=== PATIENT | female | born 1990 | race Two or more races ===

== ENCOUNTER 2021-12-04 08:34 | Outpatient (CLI) | payer BC ==
[2021-12-04 18:25] LABS: SARS-CoV-2 PCR by NAA Not Detected (NotDetected)
== END 2021-12-04 08:35 | disposition home or self-care (01) ==
LOC: CSHLAB 08:34
PROVIDERS: ATTEND Student in an Organized Health Care Education/Training Program
DX: Z20.822 Contact with and (suspected) exposure to COVID-19 (principal)
CPT/HCPCS: U0003; U0005

== ENCOUNTER 2021-12-09 19:00 | Inpatient (IN) | payer BC ==
[~2021-12-09 19:00] MED LIST: Bupivacaine 0.25% HCL 30 ML VIAL ONE
[2021-12-09] MEDS ORDERED: HYDROcodone/Acetaminophen 5/325 mg Tablet PO PRN (20:39)
[2021-12-09] MEDS ORDERED: Misoprostol 200 MCG TAB PR PRN (20:39)
[2021-12-09] MEDS ORDERED: Ibuprofen 800 MG TAB PO PRN (20:39)
[2021-12-09] MEDS ORDERED: Carboprost 250 MCG/ML AMP IM PRN (20:39)
[2021-12-09] MEDS ORDERED: Ondansetron PF 4 MG/2 ML Vial IVP PRN (20:39)
[2021-12-09] MEDS ORDERED: Lidocaine 1% (PF) 30 ML VIAL SC PRN (20:39)
[2021-12-09] MEDS ORDERED: hydrALAZINE 20 MG/ML VIAL SLOW IVP PRN (20:39)
[2021-12-09] MEDS ORDERED: Diphenoxylate HCl/Atropine Tablet PO PRN (20:39)
[2021-12-09] MEDS ORDERED: Methylergonovine 0.2 MG/ML VIAL IM PRN (20:39)
[2021-12-09] MEDS ORDERED: Promethazine HCl 25 MG/ML VIAL IM PRN (20:39)
[2021-12-09] MEDS ORDERED: Acetaminophen 500 MG TAB PO PRN (20:39)
[2021-12-09] MEDS ORDERED: Butorphanol Tartrate 1 MG/ML VIAL SLOW IVP PRN (20:39)
[2021-12-09] MEDS ORDERED: NS w/ Oxytocin 30 units 500 ML IV SCH ×2 (20:45)
[2021-12-09 20:53] VITALS: BMI 23.6
[2021-12-09] MEDS: Misoprostol 100 MCG TAB VAG SCH (21:22)
[2021-12-09 21:26] LABS: Hemoglobin 12.1 g/dL (12.0-15.5); Mean Corpuscular Hemoglobin 29.5 pg (27.0-33.0); Mean Corpuscular Volume 84.4 fl (81.6-98.3); Mean Platelet Volume 11.9 fl (7.4-10.4); Platelet Count 257 10x3/uL (150-450); RBC Distribution Width 14.6 % (11.5-14.5); White Blood Cell (WBC) Count 9.2 10x3/uL (3.5-10.5)
[2021-12-09 21:34] LABS: Glucose 110 mg/dL (70-105)
[2021-12-09 22:00] LABS: Syphilis Antibody Nonreactive (Nonreactive); Syphilis Antibody Index 0.07 S/CO (<1.00 Non-Reactive)
[2021-12-09 22:01] LABS: Hep B Surf Ag Non-Reactive S/CO (NonReactive)
[2021-12-09 22:05] LABS: HBSAg Index 0.18 S/CO (0-0.99)
[2021-12-10] MEDS: Lactated Ringer's 1,000 ML IV SCH (08:08)
[2021-12-10] MEDS: Misoprostol 100 MCG TAB VAG SCH (08:15)
[2021-12-10] MEDS ORDERED: Fentanyl 2 mcg/Bup 0.1% Cadd 100 ML ONE (13:56)
[2021-12-10] MEDS ORDERED: Naloxone HCl 0.4 mg/ml Vial IVP PRN ×2 (14:33)
[2021-12-10] MEDS ORDERED: ePHEDrine Sulfate 50 MG/10 ML VIAL SLOW IVP PRN (14:33)
[2021-12-10] MEDS ORDERED: Ondansetron PF 4 MG/2 ML Vial IVP PRN ×2 (14:33→21:12)
[2021-12-10] MEDS ORDERED: Acetaminophen 325 MG TAB PO PRN (14:33)
[2021-12-10] MEDS ORDERED: Lactated Ringer's 500 ML IV PRN (14:33)
[2021-12-10] MEDS ORDERED: Promethazine HCl 25 MG/ML VIAL IM PRN ×2 (14:33→21:12)
[2021-12-10] MEDS ORDERED: diphenhydrAMINE 50 MG/ML VIAL IVP PRN (14:33)
[2021-12-10] MEDS ORDERED: Hydrocerin (Eucerin) Cream 120 gm Jar TOP PRN (14:33)
[2021-12-10] MEDS ORDERED: Communication Order-Pharmacy FS SCH (14:45)
[2021-12-10] MEDS ORDERED: Fentanyl 2 mcg/Bupivacaine 0.1% Cassette 100 ML EPIDURAL SCH (14:45)
[2021-12-10] MEDS ORDERED: hydrALAZINE 20 MG/ML VIAL SLOW IVP PRN (21:12)
[2021-12-10] MEDS ORDERED: Milk Of Magnesia 30 ML UDCUP PO PRN (21:12)
[2021-12-10] MEDS ORDERED: diphenhydrAMINE 25 MG CAP PO PRN (21:12)
[2021-12-10] MEDS ORDERED: Preparation H Ointment 28 GM TUBE PR PRN (21:12)
[2021-12-10] MEDS ORDERED: Lanolin Ointment 7 GM TUBE TOP PRN (21:12)
[2021-12-10] MEDS ORDERED: HYDROcodone/Acetaminophen 5/325 mg Tablet PO PRN ×2 (21:12)
[2021-12-10] MEDS ORDERED: Boostrix 0.5 ML (Tdap) VIAL IM ONE (21:12)
[2021-12-10] MEDS ORDERED: Bisacodyl 10 MG SUPP PR PRN (21:12)
[2021-12-10] MEDS ORDERED: Benzocaine-Menthol 82.5 ML CAN TOP PRN (21:12)
[2021-12-10] MEDS: Docusate 100 MG CAP PO SCH (21:39)
[2021-12-10] MEDS: Ibuprofen 800 MG TAB PO SCH (21:39)
[2021-12-11] MEDS: Ibuprofen 800 MG TAB PO SCH ×3 (05:32→22:47)
[2021-12-11] MEDS: Ferrous Sulfate 325 MG TAB PO SCH ×2 (08:25→14:28)
[2021-12-11] MEDS: Lactated Ringer's 1,000 ML IV SCH ×2 (08:26→08:27)
[2021-12-11] MEDS: Misoprostol 100 MCG TAB VAG SCH (08:26)
[2021-12-11] MEDS: Prenatal Vitamin 1 TAB PO SCH (09:11)
[2021-12-11] MEDS: Docusate 100 MG CAP PO SCH ×2 (09:11→22:47)
[2021-12-12] MEDS: Ibuprofen 800 MG TAB PO SCH (06:22)
[2021-12-12] MEDS: Ferrous Sulfate 325 MG TAB PO SCH (07:24)
[2021-12-12 08:29] VITALS: BP 101/67; TEMP 97.6
[2021-12-12] MEDS: Docusate 100 MG CAP PO SCH (08:30)
[2021-12-12] MEDS: Prenatal Vitamin 1 TAB PO SCH (08:30)
== END 2021-12-12 13:30 | disposition home or self-care (01) | DRG 807 ==
LOC: CSHLD 20:04 → CSHPP 12-10 20:49
PROVIDERS: ADMIT Student in an Organized Health Care Education/Training Program; ATTEND Student in an Organized Health Care Education/Training Program
PROC: 10E0XZZ Delivery of Products of Conception, External Approach (ICD-10-PCS; principal; 2021-12-10)
PROC: 0KQM0ZZ Repair Perineum Muscle, Open Approach (ICD-10-PCS; 2021-12-10)
PROC: 3E0P7VZ Introduction of Hormone into Female Reproductive, Via Natural or Artificial Opening (ICD-10-PCS; 2021-12-10)
PROC: 10907ZC Drainage of Amniotic Fluid, Therapeutic from Products of Conception, Via Natural or Artificial Opening (ICD-10-PCS; 2021-12-10)
PROC: 3E033VJ Introduction of Other Hormone into Peripheral Vein, Percutaneous Approach (ICD-10-PCS; 2021-12-10)
DX: O24.425 Gestational diabetes mellitus in childbirth, controlled by oral hypoglycemic drugs (principal); Z37.0 Single live birth; Z3A.39 39 weeks gestation of pregnancy; Z20.822 Contact with and (suspected) exposure to COVID-19; O70.1 Second degree perineal laceration during delivery
CPT/HCPCS: 36415; 36416; 51702; 82947; 85027; 86780; 86850; 86900; 86901; 87340; J2590; S0020